=== PATIENT | female | born 1965 | race Caucasian/White ===

== ENCOUNTER 2021-05-23 16:01 | Emergency (ER) | payer SELFPAY ==
[~2021-05-23] VITALS: Ht 157.5 cm; Wt 64.0 kg
[2021-05-23] MEDS ORDERED: IBUPROFEN 600MG TABLET PO ONE (16:30)
[2021-05-23] MEDS ORDERED: ACETAMINOPHEN 325MG TABLET PO ONE (16:30)
[2021-05-23 17:16] VITALS: BP 141/77
[2021-05-23] MEDS ORDERED: NAPR-1176 MT (17:50)
[2021-05-23] MEDS ORDERED: TOPUD MT (17:50)
== END 2021-05-23 18:35 | disposition home or self-care (01) ==
LOC: ER 16:01
DX: S42.292A Other displaced fracture of upper end of left humerus, initial encounter for closed fracture (principal); X58.XXXA Exposure to other specified factors, initial encounter; Y93.89 Activity, other specified; Y92.89 Other specified places as the place of occurrence of the external cause; Y99.8 Other external cause status
CPT/HCPCS: 73030; 99283; A4565

== ENCOUNTER 2023-07-10 19:06 | Emergency (ER) | payer MEDICAID ==
[~2023-07-10] VITALS: Ht 157.5 cm; Wt 66.2 kg
[~2023-07-10 19:06] MED LIST: NAPR-1176 MT; TOPUD MT
[2023-07-10 19:26] VITALS: TEMP 98.1; O2SAT 100
[2023-07-10] MEDS: ACETAMINOPHEN 325MG TABLET PO ONE (21:30)
[2023-07-10] MEDS: KETOROLAC 30MG/ML VIAL IM ONE (21:45)
[2023-07-10] MEDS ORDERED: TOPUD MT (22:40)
[2023-07-10] MEDS ORDERED: IBUP-2028 MT (22:40)
[2023-07-10 22:51] VITALS: BP 122/70; PULSE 68; RESP 17
== END 2023-07-10 22:53 | disposition home or self-care (01) ==
LOC: ER 19:06
DX: S09.90XA Unspecified injury of head, initial encounter (principal); Z98.890 Other specified postprocedural states; X58.XXXA Exposure to other specified factors, initial encounter; Y93.89 Activity, other specified; Y92.89 Other specified places as the place of occurrence of the external cause; Y99.8 Other external cause status
CPT/HCPCS: 99283; 96372; J1885

== ENCOUNTER 2023-08-26 16:10 | Emergency (ER) | payer MEDICAID ==
[~2023-08-26] VITALS: Ht 162.6 cm; Wt 65.0 kg
[~2023-08-26 16:10] MED LIST changes: +IBUP-2028 MT
[2023-08-26 16:35] VITALS: O2SAT 100
[2023-08-26 17:34] LABS: BASOPHILS % 0.8 % (0.0-2.0); EOSINOPHILS % 7.4 % (0.0-5.0); HEMATOCRIT. 36.4 % (36.0-48.0); HEMOGLOBIN. 12.3 g/dL (12.0-16.0); LYMPHOCYTES % 39.4 % (20.0-50.0); MEAN CORPUSCULAR HEMOGLOBIN 29.4 pg (28.0-32.0); MEAN CORPUSCULAR HGB CONC 33.7 g/dL (31.0-37.0); MEAN CORPUSCULAR VOLUME 87.4 fL (81.0-99.0); MEAN PLATELET VOLUME 7.2 fl (7.4-10.4); MONOCYTES % 6.3 % (2.0-8.0); NEUTROPHILS % 46.1 % (40.0-76.0); PLATELET 345 x1000/uL (130-400); RED BLOOD CELL COUNT 4.17 mill/uL (4.2-5.4); RED CELL DISTRIBUTION WIDTH 13.2 % (11.6-14.6); WHITE BLOOD COUNT 9.9 x1000/uL (4.5-11.0)
[2023-08-26 17:41] LABS: POTASSIUM 4.2 mEq/L (3.5-5.1)
[2023-08-26 17:42] LABS: CALCIUM 9.7 mg/dL (8.7-10.4)
[2023-08-26 17:51] LABS: CLARITY URINE CLEAR (CLEAR); COLOR URINE YELLOW (YELLOW); GLUCOSE URINE NEGATIVE (NEGATIVE); KETONES URINE NEGATIVE (NEGATIVE); LEUKOCYTE ESTERASE URINE NEGATIVE (NEGATIVE); NITRITE URINE NEGATIVE (NEGATIVE); OCCULT BLOOD URINE 2+ (NEGATIVE); PH URINE 5.5 (4.5-8.0); PROTEIN URINE NEGATIVE (NEGATIVE); SPECIFIC GRAVITY URINE 1.022 (1.005-1.030); UROBILINOGEN URINE 0.2 E.U./dL (0.2-1.0)
[2023-08-26 18:17] LABS: BACTERIA URINE NONE SEEN; RBC URINE 0-2 /hpf (0-2); SQUAMOUS EPITHELIAL CELL URINE RARE /lpf (RARE/1+); WBC URINE NONE SEEN /hpf (0-2)
[2023-08-26] MEDS: ONDANSETRON 4MG ODT PO ONE (19:06)
[2023-08-26] MEDS: IBUPROFEN 400MG TABLET PO ONE (19:06)
[2023-08-26 20:00] VITALS: BP 128/68; PULSE 74; RESP 14; TEMP 98.6
[2023-08-26] MEDS ORDERED: IBUP-2028 MT (20:02)
== END 2023-08-26 20:20 | disposition home or self-care (01) ==
LOC: ER 16:10
DX: R51.9 Headache, unspecified (principal); R42 Dizziness and giddiness; R11.2 Nausea with vomiting, unspecified
CPT/HCPCS: 99284; 70450; 80048; 81003; 81025; 85025; 36415; 93005; Q0162

== ENCOUNTER 2023-10-21 13:49 | Emergency (ER) | payer MEDICAID ==
[~2023-10-21] VITALS: Ht 167.6 cm; Wt 70.0 kg
[2023-10-21 13:53] VITALS: O2SAT 99
[2023-10-21] MEDS ORDERED: DICYCLOMINE 10 MG/5 ML ORAL SYR PO STA (13:56)
[2023-10-21] MEDS ORDERED: MAGNESIUM/ALUMINUM HYDROXIDE/SIMETHICONE 30ML UDC PO STA (13:56)
[2023-10-21] MEDS ORDERED: ONDANSETRON 4MG ODT PO STA (13:56)
[2023-10-21] MEDS ORDERED: FAMOTIDINE 20MG TABLET PO ONE (14:00)
[2023-10-21 14:09] LABS: BASOPHILS % 0.8 % (0.0-2.0); EOSINOPHILS % 1.1 % (0.0-5.0); HEMATOCRIT. 39.1 % (36.0-48.0); HEMOGLOBIN. 13.2 g/dL (12.0-16.0); LYMPHOCYTES % 35.3 % (20.0-50.0); MEAN CORPUSCULAR HEMOGLOBIN 29.2 pg (28.0-32.0); MEAN CORPUSCULAR HGB CONC 33.7 g/dL (31.0-37.0); MEAN CORPUSCULAR VOLUME 86.5 fL (81.0-99.0); MEAN PLATELET VOLUME 7.1 fl (7.4-10.4); MONOCYTES % 5.8 % (2.0-8.0); PLATELET 343 x1000/uL (130-400); RED BLOOD CELL COUNT 4.52 mill/uL (4.2-5.4); RED CELL DISTRIBUTION WIDTH 13.2 % (11.6-14.6); WHITE BLOOD COUNT 9.4 x1000/uL (4.5-11.0)
[2023-10-21 14:16] LABS: CARBON DIOXIDE 25 mEq/L (21-32); CHLORIDE 101 mEq/L (98-107); POTASSIUM 3.8 mEq/L (3.5-5.1); SODIUM 136 mEq/L (136-145)
[2023-10-21 14:17] LABS: CALCIUM 9.5 mg/dL (8.7-10.4)
[2023-10-21 14:21] LABS: CREATININE 0.9 mg/dL (0.6-1.0)
[2023-10-21 14:22] LABS: GLUCOSE 140 mg/dL (70-105); UREA NITROGEN BLOOD 13 mg/dL (9-23)
[2023-10-21 14:23] LABS: ALANINE AMINOTRANSFERASE 19 IU/L (10-49); ASPARTATE AMINOTRANSFERASE 20 IU/L (<34)
[2023-10-21 14:24] LABS: ALBUMIN 4.7 g/dL (3.2-4.8); BILIRUBIN DIRECT 0.2 mg/dL (<=3.0); BILIRUBIN TOTAL 0.6 mg/dL (0.1-1.0)
[2023-10-21 14:54] LABS: TROPONIN I HIGH SENSITIVITY < 4 ng/L (3.0-34)
[2023-10-21] MEDS: FAMOTIDINE 20MG TABLET PO NR (15:40)
[2023-10-21] MEDS: ONDANSETRON 4MG ODT PO NR (15:40)
[2023-10-21] MEDS: MAGNESIUM/ALUMINUM HYDROXIDE/SIMETHICONE 30ML UDC PO NR (15:40)
[2023-10-21] MEDS: DICYCLOMINE HCL 10MG CAPSULE PO NR (15:40)
[2023-10-21] MEDS ORDERED: FAMO-135 MT (16:36)
[2023-10-21] MEDS: KETOROLAC 30MG/ML VIAL IM ONE (16:37)
[2023-10-21 16:48] VITALS: BP 111/58; PULSE 80; RESP 16; TEMP 98.5
== END 2023-10-21 16:52 | disposition home or self-care (01) ==
LOC: ER 13:49
DX: K29.70 Gastritis, unspecified, without bleeding (principal); K76.0 Fatty (change of) liver, not elsewhere classified; Z98.890 Other specified postprocedural states; Z79.899 Other long term (current) drug therapy
CPT/HCPCS: 99285; 76700; 80076; 80048; 83690; 85025; 84484; 36415; 96372; Q0162; J1885